=== PATIENT | male | born 1955 ===

== ENCOUNTER → 2024-09-20 10:33 | Outpatient (BNVA) | payer MEDICARE, SELFPAY | PROVIDERS: PCP Registered Nurse; Referring Provider Registered Nurse; Visit Provider Nurse Practitioner Gerontology ==

== ENCOUNTER 2024-09-20 15:04 | Outpatient (CLI) | payer MEDICARE, SELFPAY ==
[2024-09-20 18:22] LABS: PSA, Diagnostic 4.5 ng/mL (<=4.5)
== END 2024-09-20 15:05 | disposition home or self-care (01) ==
LOC: LBO 15:04
PROVIDERS: PCP Registered Nurse; Visit Provider Nurse Practitioner Gerontology
DX: N13.8 Other obstructive and reflux uropathy (principal); N40.1 Benign prostatic hyperplasia with lower urinary tract symptoms; R39.198 Other difficulties with micturition; R97.20 Elevated prostate specific antigen [PSA]
CPT/HCPCS: 36415; 51798; 81003; 99203; 84153